=== PATIENT | female | born 1945 | race Two or more races ===

== ENCOUNTER 2018-07-16 00:10 | Inpatient (IN) | payer OTHER ==
[~2018-07-16] VITALS: Ht 154.9 cm; Wt 45.4 kg
--- NOTE | 2018-07-16 00:20 | NUR ---
PT BIBRA COMPLAINING SEVERE RIGHT ABDOMINAL PAIN. PT STATES SHE WAS SLEEPING AND THE PAIN WOKE HER UP. PT COMPLAING OF NAUSEA, NO VOMITTING OR DIARRHEA. PT DENIES SOB OR CHEST PAIN. PT AAOX4. PT IS GRASPING SITE AND MOANING IN PAIN. PT PLACED ON MONITOR, WAITING MD EVALUATION
--- NOTE | 2018-07-16 00:25 | NUR ---
MD AT BEDSIDE FOR EVALUATION
--- NOTE | 2018-07-16 00:25 | NUR ---
INITIATED IV LEFT AC 18G. LABS DRAWN FROM SITE. LAB CALLED FOR PHYSICIAN OFFICE NURSE
[2018-07-16] MEDS ORDERED: MORPHINE SULFATE INJ 4 MG/ML DISP.SYRIN ONE ×2 (00:29→01:15)
[2018-07-16] MEDS ORDERED: IV NS 0.9% 500 ML BAG IV ONE (00:30)
[2018-07-16] MEDS ORDERED: MORPHINE SULFATE INJ 2 MG/ML DISP.SYRIN IV ONE ×2 (00:30→01:30)
--- NOTE | 2018-07-16 00:30 | NUR ---
PER VERBAL MD ORDER, MEDICATED PT MORPHINE 4MG IV X1 NOW AND ZOFRAN 4MG IV X1 NOW
[2018-07-16] MEDS ORDERED: ONDANSETRON HCL/PF 4 MG/2 ML VIAL ONE ×3 (00:31→04:46)
[2018-07-16] MEDS ORDERED: ONDANSETRON HCL/PF - ER 4 MG/2 ML VIAL IV ONE (01:00)
[2018-07-16 01:07] LABS: CALCIUM, SERUM 8.9 mg/dL (8.5-10.1); CARBON DIOXIDE 29 mmol/L (21-32); CHLORIDE 102 mmol/L (98-107); GLUCOSE 124 mg/dL (74-106); POTASSIUM 3.4 mmol/L (3.5-5.1); SODIUM SERUM 138 mmol/L (136-145); UREA NITROGEN, BLOOD 20 mg/dL (7-18)
--- NOTE | 2018-07-16 01:10 | NUR ---
PT UNABLE TO PROVIDE URINE AT THIS TIME, AWARE
[2018-07-16 01:15] LABS: ALANINE AMINOTRANSFERASE 18 U/L (12-78); ALBUMIN 3.4 g/dL (3.4-5.0); ALKALINE PHOSPHATASE 54 U/L (46-116); ASPARTATE AMINOTRANSFERASE 21 U/L (15-37); BILIRUBIN,DIRECT 0.1 mg/dL (0.0-0.2); BILIRUBIN,TOTAL 0.4 mg/dL (0.2-1.0)
--- NOTE | 2018-07-16 01:22 | NUR ---
PT BROUGHT BY RADIOLOGY FOR CT
--- NOTE | 2018-07-16 01:38 | NUR ---
PT RETURNED FROM CT
[2018-07-16 01:44] LABS: BASOPHILS % (AUTO) 0.4 % (0.0-2.0); EOSINOPHILS % (AUTO) 1.7 % (0.0-6.0); HEMATOCRIT 38 % (33-45); HEMOGLOBIN 12.8 g/dL (11.5-14.8); MEAN CORPUSCULAR HGB CONC 33 g/dl (31.0-36.0); MEAN CORPUSCULAR VOLUME 98 fL (82-100); MONOCYTES # (AUTO) 0.2 /CMM (0.1-1.30); MONOCYTES % (AUTO) 4.2 % (2.0-12.0); NEUTROPHILS # (AUTO) 3.6 /CMM (1.8-8.9); NEUTROPHILS % (AUTO) 59.7 % (43.0-81.0); PLATELET COUNT (AUTO) 278 /CMM (150-450); RDW COEFFICIENT OF VARIATION 12.8 (11.5-15.0); RED BLOOD CELL COUNT(AUTO) 3.91 MIL/uL (4.0-5.2)
--- NOTE | 2018-07-16 02:25 | NUR ---
PT UNABLE TO PROVIDE URINE AT THIS TIME, AWARE
--- NOTE | 2018-07-16 02:38 | NUR ---
CALLED [facility] FOR REPORT
--- NOTE | 2018-07-16 03:00 | NUR ---
PER VERBAL MD ORDER, ADMINISTERED 1000ML NS IV X1 NOW. IV END TIME 0400 18G RIGHT AC
--- NOTE | 2018-07-16 03:05 | NUR ---
CALLED DR. ABREU GENERAL SURGERY MD PAGED, WAITING FOR CALL BACK.
--- NOTE | 2018-07-16 03:12 | NUR ---
CALLED [facility], WAITING FOR MD CALL BACK,
--- NOTE | 2018-07-16 03:15 | NUR ---
PT RESTING COMFORTABLY IN BED. EASILY AROUSABLE, AAOX4. NO ACUTE DISTRESS NOTED AT THIS TIME. VSS. WILL CONTINUE TO MONITOR.
--- NOTE | 2018-07-16 03:19 | NUR ---
GAVE REPORT TO CANDI RENEE FOR JULIET. MED SURG BED 306-2
--- NOTE | 2018-07-16 03:20 | NUR ---
DR. ABREU GENERAL SURGERY CONSULT SPEAKING TO DR. MAZARIEGOS
--- NOTE | 2018-07-16 03:21 | NUR ---
DR. MAZARIEGOS SPEAKING TO EPRP NEL MEZA, [facility]. AUTH # [id number]
[2018-07-16] MEDS ORDERED: PIPERACILLIN /TAZOBACTAM 3.375 G VIAL IV ONE (03:29)
[2018-07-16] MEDS ORDERED: HYDROMORPHONE 1 MG/1 ML DISP.SYRIN ONE (03:29)
[2018-07-16] MEDS ORDERED: PIPERACILLIN /TAZOBACTAM 3.375 G in IV D5W 50 ML IV ONE (03:30)
[2018-07-16] MEDS ORDERED: HYDROMORPHONE 1 MG/1 ML DISP.SYRIN IV ONE (03:30)
[2018-07-16] MEDS ORDERED: IV NS 0.9% 1,000 ML BAG IV ONE (03:30)
[2018-07-16] MEDS ORDERED: ONDANSETRON HCL/PF 4 MG/2 ML VIAL IVP ONE (03:30)
--- NOTE | 2018-07-16 03:30 | NUR ---
CALLED [facility] FOR PANEL CALL ADMISSION. WAITING FOR DR. HUFFMAN CALL BACK.
--- NOTE | 2018-07-16 03:41 | NUR ---
CALLED RADIOLOGY FOR CXR
--- NOTE | 2018-07-16 03:48 | NUR ---
RADIOLOGY AT BEDSIDE FOR CXR
[2018-07-16] MEDS ORDERED: METRONIDAZOLE 500MG/ NS 100ML 100 ML IV ONE (03:57)
--- NOTE | 2018-07-16 04:06 | NUR ---
CALLED [facility] FOR ADMISSION, WAITING FOR DR. NEVES CALL BACK.
[2018-07-16] MEDS: METRONIDAZOLE 500MG/ NS 100ML 500 MG in PREMIX 1 EA IV SCH ×2 (04:12→13:48)
[2018-07-16] MEDS ORDERED: IV D5/0.45 NACL 1,000 ML IV PRN (04:16)
--- NOTE | 2018-07-16 04:27 | NUR ---
CALLED DR. ABREU MACHINE JOINER CEMENTER GENERAL SURGERY, VM LEFT, WAITING FOR MD CALL BACK.
[2018-07-16] MEDS ORDERED: HYDROCODONE/APAP 5/325MG 1 EACH TABLET PO PRN (04:30)
[2018-07-16] MEDS ORDERED: ZOLPIDEM TARTRATE 5 MG TABLET PO PRN (04:30)
[2018-07-16] MEDS ORDERED: Z GUARD REMEDY 2 OZ OINT TP PRN (04:30)
[2018-07-16] MEDS ORDERED: MAGNESIUM HYDROXIDE 30 ML UDC PO PRN (04:30)
[2018-07-16] MEDS ORDERED: ONDANSETRON HCL/PF 4 MG/2 ML VIAL IVP PRN (04:30)
[2018-07-16] MEDS ORDERED: MORPHINE SULFATE INJ 2 MG/ML DISP.SYRIN IV PRN (04:30)
[2018-07-16] MEDS ORDERED: ACETAMINOPHEN 325 MG TABLET PO PRN (04:30)
[2018-07-16] MEDS ORDERED: MAG HYDROX/AL HYDROX/SIMETH 30 ML UDC PO PRN (04:30)
--- NOTE | 2018-07-16 04:45 | NUR ---
CALLED DR. BRADY MD PAGED, WAITING FOR CALL BACK.
--- NOTE | 2018-07-16 04:51 | NUR ---
PT HAVING MORE FREQUENT EPISODES OF VOMITTING. DARK BROWN CONTENTS, NO BLOOD NOTED. MD AWARE. Addendum: 07/16/18 at 0454 by MADHU PER VERBAL MD ORDER, ADMINISTERED ZOFRAN 4MG IV X1 NOW. RIGHT AC 18G
--- NOTE | 2018-07-16 05:02 | NUR ---
CALLED DR. BRADY MD PAGED. WAITING FOR CALL BACK.
--- NOTE | 2018-07-16 05:16 | NUR ---
PER RN MANAGER PHOTO, SELINA CALLED DR. ABREU, CHRISTIE LEFT, WAITING FOR MD CALL BACK,
--- NOTE | 2018-07-16 05:21 | NUR ---
PT RESTING COMFORTABLY IN BED, EASILY AROUSABLE. VSS. WILL CONTINUE TO MONITOR
--- NOTE | 2018-07-16 05:34 | NUR ---
DR. MAZARIEGOS SPEAKING TO DR. ABREU
[2018-07-16] MEDS ORDERED: LIDOCAINE VISCOUS 2% UD 15 ML UDC ONE (05:44)
--- NOTE | 2018-07-16 05:55 | NUR ---
CALLED RADIOLOGY FOR CT
[2018-07-16] MEDS ORDERED: LIDOCAINE VISCOUS 2% UD 15 ML UDC MM SCH (06:00)
[2018-07-16] MEDS ORDERED: ONDANSETRON HCL/PF 4 MG/2 ML VIAL IV PRN (06:00)
[2018-07-16] MEDS ORDERED: IOHEXOL-300 100 ML VIAL IV ONE (06:10)
[2018-07-16] MEDS ORDERED: CT SWABBABLE VALVE TRANS SET 1 EA INFUS.SET MC ONE (06:10)
--- NOTE | 2018-07-16 06:17 | NUR ---
CALLED RADIOLOGY FOR CT ABD W/ CONTRAST.
--- NOTE | 2018-07-16 06:19 | NUR ---
GAVE UPDATE REPORT TO CANDI RENEE
--- NOTE | 2018-07-16 06:22 | NUR ---
PT BROUGHT BY RADIOLOGY FOR CT
--- NOTE | 2018-07-16 06:45 | NUR ---
PT RETURNED. RADIOLOGY TO PROVIDE ORAL CONTRAST FOR ADMINISTRATION
--- NOTE | 2018-07-16 07:06 | NUR ---
CALLED DR. JAMIE ABREU, PER DR. MCKEE REQUEST. PAGED, WAITING FOR CALL BACK.
--- NOTE | 2018-07-16 07:19 | NUR ---
DR. ABREU SPEAKING WITH DR. MCKEE ON THE PHONE REGARDING PLAN OF CARE
[2018-07-16] MEDS ORDERED: DIATR MEGLU/DIATRIZOATE SODIUM 30 ML BOTTLE (GASTROGRAPHIN) ONE (07:26)
[2018-07-16] MEDS ORDERED: SIMV20TA6 PO (07:38)
[2018-07-16] MEDS ORDERED: ASPI-1169 PO (07:38)
--- NOTE | 2018-07-16 07:46 | NUR ---
MD AT THE BEDSIDE VSS CONT TO MONITOR
--- NOTE | 2018-07-16 07:52 | NUR ---
ORAL CONTRAST ADMINISTERED VIA NG TUBE
--- NOTE | 2018-07-16 07:52 | NUR ---
PT GIVEN CONTRAST VIA NG TUBE
--- NOTE | 2018-07-16 08:14 | NUR ---
PENDING [address]
[2018-07-16 08:41] LABS: INR 0.97 (0.87-1.13)
--- NOTE | 2018-07-16 09:34 | NUR ---
CT DONE PT SENT O FLOOR STABLE
--- NOTE | 2018-07-16 09:45 | NUR ---
PT BROUGHT UP TO FLOOR.ADMITTED,STATES SMALL AMT. ABD. PAIN WITH ACTIVITY.ORIENTED X4,PLEASANT.FAMILY AT BEDSIDE.
[2018-07-16 10:00] VITALS: BP 119/61
[2018-07-16] MEDS: POTASSIUM CL. PREMIX PERIPHER. 50 ML IV SCH ×2 (11:28→12:50)
--- NOTE | 2018-07-16 15:23 | NUR ---
PT. TRANSFERRED TO [facility] SIGNED ALL PAPERS.REPORT CALLED TO JE[facility].ALL REPORTS GIVEN TO DRIVERS.UA SENT TO LAB.NG TO LOW INTERMITTENT SUCTION.
[2018-07-16] MEDS ORDERED: PIPE3.379 IV (15:46)
[2018-07-16 16:00] VITALS: BP 114/58
[2018-07-16] MEDS ORDERED: PIPERACILLIN /TAZOBACTAM 3.375 G in IV D5W 50 ML IV SCH (18:00)
[2018-07-16 19:51] LABS: APPEARANCE,URINE CLEAR (CLEAR); BILIRUBIN,URINE NEGATIVE (NEGATIVE); BLOOD, URINE 1+ Ery/uL (NEGATIVE); COLOR,URINE YELLOW (YELLOW); KETONES,URINE NEGATIVE (NEGATIVE); LEUKOCYTE ESTERASE ,URINE NEGATIVE (NEGATIVE); NITRITE, URINE NEGATIVE (NEGATIVE); PROTEIN,URINE TRACE mg/dl (NEGATIVE); UGLUCOSE NEGATIVE (NEGATIVE); UROBILINOGEN,URINE 0.2 EU/dL (0.2)
[2018-07-16 21:41] LABS: BACTERIA,URINE Rare /HPF (None Seen); SQUAMOUS EPITHELIAL CELL,UR 0-2 /HPF (None Seen); WBC,URINE 0-2 /HPF (0-3)
== END 2018-07-16 17:15 | disposition short-term general hospital (02) | DRG 380 ==
LOC: ER 00:15 → MED 03:23
PROVIDERS: ADMIT Internal Medicine; ATTEND Internal Medicine
DX: K25.5 Chronic or unspecified gastric ulcer with perforation (principal); N17.0 Acute kidney failure with tubular necrosis; E44.0 Moderate protein-calorie malnutrition; Z68.1 Body mass index [BMI] 19.9 or less, adult; K66.8 Other specified disorders of peritoneum; Z86.73 Personal history of transient ischemic attack (TIA), and cerebral infarction without residual deficits; Z87.442 Personal history of urinary calculi; Z90.5 Acquired absence of kidney; E16.2 Hypoglycemia, unspecified; Z79.82 Long term (current) use of aspirin; Z79.899 Other long term (current) drug therapy; Z87.11 Personal history of peptic ulcer disease; N20.0 Calculus of kidney; E87.6 Hypokalemia; M19.90 Unspecified osteoarthritis, unspecified site
CPT/HCPCS: 36415; 71045-TC; 80048-TC; 80076-TC; 81000-TC; 84484-TC; 85025-TC; 85730-TC; 87081-TC; A4216; A4606; J1170; J2270; J2405; J2543; J3480; J3490; J7030; J7040; J7060; Q9963; Q9967; Z7610